=== PATIENT | female | born 1950 | race Caucasian/White ===

== ENCOUNTER → 2016-10-24 | Day surgery (SDC) | payer MEDICARE, BC ==
[~2016-10-24] MED LIST: ACETAZOLAMIDE500 M1 PO; ADVAIR 100-501 EAC1; ADVAIR 2501 DISK W/1 IH; ALBUTEROL17 GM INH; ALDARA12 EA TOP; AMIODARONE PO; ANTIVERT12.5 MG PO; ASPIR-TRIN325 MG PO; ASPIRIN PO; ASPIRIN81 M2 PO; BACLOFEN10 MG PO; CARAFATE; CARAFATE1 GM PO; CIPRO PO; COMBIGAN EYE DRO5 ML; COMBIGAN EYE DRO5 ML OU; DEXILANT60 MG; DEXILANT60 MG PO; DICLOFENAC PO; DILANTIN PO; DORZOLAMIDE HCL10 M2 OU; DOXEPIN PO; DYAZIDE 371 CAP 37.5 PO; EC-NAPROSYN500 MG PO; ESTRACE; ESTRACE PO; FLAGYL PO; HCTZ PO; HYCODAN60 ML 5MG/ PO; HYDROCHLOROTH12.5 M1 PO; IMDUR-ER60 MG; IMDUR-ER60 MG PO; IPRAT-ALBUT 0.5-3 ML INH; LAMISIL250 MG PO; LANSOPRAZOLE30 MG PO; LATANOPROST2.5 ML; LATANOPROST2.5 ML OU; LEVAQUIN PO; LIOTHYRONINE PO; LISINOPRIL PO; LOPRESSOR PO; LOVASTATIN20 M1 PO; MUCINEX DM1 TAB.SR . PO; NASONEX17 GM; NATURAL VITA400 UNI2 PO; NEURONTIN600 MG PO; NEXIUM PO; NITROGLYGERIN0.4 MG SL; NITROQUICK0.4 MG SL; PLAVIX PO; PREDNISONE; PREDNISONE PO; PREMARIN VAG CR45 GM; PRILOSEC20 M1 PO; PROTONIX PO; PYRIDIUM PO; SUPER B COMPLEX1 CAP PO; SYNTHROID PO; SYNTHROID112 MCG PO; TESSALON PERLE100 M1 PO; TESSALON200 MG PO; TRAVATAN5 ML OP; VIMPAT PO; VIMPAT50 MG PO; VITAMIN D34000 UNIT PO; VOLTAREN75 MG; VOLTAREN75 MG PO; XALATAN OP; XENICAL120 MG PO; ZESTORETIC 20/11 TAB PO; ZESTRIL2.5 M1 PO; ZITHROMAX PO; ZOCOR; ZOCOR PO; ZOFRAN PO; ZYRTEC PO
--- NOTE | ~2016-10-24 | OR ---
Unit #: [id number] #: [id number] Patient: DELROY BUSBY [id number] [address] [address] [id number] O MR#: [id number] NAME: DELROY BUSBY ROOM: Date of Procedure: 10/24/2016 Admission Date: 10/24/2016 Surgeon: Moody Monsalve M.D. : 1950 Attending Physician: Josef Monsalve Primary Care Physician: Raghu Vences M.D. [facility]ENTER OPERATIVE NOTE PROCEDURE PERFORMED Lumbar epidural steroid injection under x-ray guided needle placement. PREOPERATIVE DIAGNOSES 1. Acute lumbar radiculitis. 2. Spinal stenosis, lumbosacral spine. 3. Degenerative joint disease, lumbosacral spine. 4. Degenerative disk disease, lumbosacral spine. INDICATIONS FOR PROCEDURE The patient presents today with longstanding history of chronic lumbar radicular pain secondary to her underlying degenerative processes. She is generally fairly well managed medically with ongoing continuous conservative measures; however, she does occasionally experience exacerbations, which breakthrough these ongoing continuous conservative measures and to date have only responded to epidural steroid injections. She is currently experiencing just such an exacerbation and presents today requesting an epidural steroid injection. After discussing risks and benefits of proceeding today with a lumbar approach epidural steroid injection, the patient agreed this would be the appropriate course of action. DESCRIPTION OF PROCEDURE She was then taken to the operating room, where she was prepped and draped in a sterile manner. Standard monitors were applied. She refused all forms of sedation and lumbar epidural space accessed at the L4-5 level using loss of resistance technique and x-ray guidance. Needle placement was confirmed with injection of 2 mL of Omnipaque. Approximately 60% dye flow was inferior and 40% superior. Total x-ray time for this needle placement was 6 seconds. Following successful needle placement confirmation, the patient received an injectate containing 4 mL normal saline and 80 mg of methylprednisolone. She tolerated this procedure well. She was discharged home with followup instructions, which include an offer to return to this clinic as early as 02/13/2017 if we could be of further service to her. Dictated by... Moody Monsalve M.D. JENNIFER/leida TD: 10/25/2016 05:16 Unit #: [id number] #: [id number] Patient: DELROY BUSBY JOB #: [id number] [facility] OPERATIVE NOTE Page 1 of 1 X Josef Monsalve MD PROCEDURE OPERATIVE NOTE
== END | disposition home or self-care (01) ==
LOC: CCSC 11:23
DX: M47.27 Other spondylosis with radiculopathy, lumbosacral region (principal); M51.17 Intervertebral disc disorders with radiculopathy, lumbosacral region; K21.9 Gastro-esophageal reflux disease without esophagitis; J44.9 Chronic obstructive pulmonary disease, unspecified; J45.909 Unspecified asthma, uncomplicated; I25.10 Atherosclerotic heart disease of native coronary artery without angina pectoris; I25.2 Old myocardial infarction; Z90.13 Acquired absence of bilateral breasts and nipples; Z88.5 Allergy status to narcotic agent; Z91.040 Latex allergy status
CPT/HCPCS: J1040; J2250

== ENCOUNTER → 2017-02-06 | Day surgery (SDC) | payer MEDICARE, BC ==
--- NOTE | ~2017-02-06 | OR ---
Unit #: [id number] #: [id number] Patient: DELROY BUSBY [id number] [address] [address] [id number] O MR#: [id number] NAME: DELROY BUSBY ROOM: Date of Procedure: 02/06/2017 Admission Date: 02/06/2017 Surgeon: Moody Monsalve M.D. : 1950 Attending Physician: Josef Monsalve Referring Physician: Josef Monsalve Primary Care Physician: Raghu Vences M.D. SUR[facility] CENTER OPERATIVE NOTE PROCEDURE PERFORMED Lumbar epidural steroid injection under x-ray guided needle placement. PREOPERATIVE DIAGNOSES 1. Acute lumbar radiculitis. 2. Spinal stenosis, lumbosacral spine. 3. Herniated disk, L4-L5. 4. Degenerative joint disease, lumbosacral spine. 5. Degenerative disk disease, lumbosacral spine. INDICATIONS FOR PROCEDURE The patient presents today with longstanding history of chronic lumbar radicular pain secondary to her underlying degenerative processes. She is generally fairly well managed medically with continuous medication and self-directed physical activity. She is on occasion experienced exacerbations, which to date have only responded to epidural steroid injection. Her usual amount of relief with an epidural steroid injection is 60% to 80% to 100% with a duration of 6, 8, 10 weeks or longer. These are the patient's descriptive terms. Following discussion of risks and benefits of proceeding today with an L4-L5 injection which had been most successful in the past, the patient agreed this would be the appropriate course of action. DESCRIPTION OF PROCEDURE She was then taken to the operating room, where she was prepped and draped in a sterile manner. Standard monitors were applied. She refused all forms of sedation and lumbar epidural space accessed at L4-L5 level using loss of resistance technique and x-ray guidance. Needle placement was confirmed with injection of 2 mL of Omnipaque. There was good superior and inferior flow at this L4-L5 needle placement. Following successful needle placement confirmation, the patient received an injectate containing 4 mL normal saline and 80 mg of methylprednisolone. She tolerated this procedure well. She was discharged home with followup instructions, which include an offer to return to this clinic as early as 05/15/2017 if we could be of further service to her. She is instructed if she was asymptomatic at the time of that scheduled appointment to simply not keep that appointment and to follow up with this clinic or her primary and referring provider at such point as we could be of further service to her. Dictated by... Moody Monsalve M.D. Unit #: [id number] #: [id number] Patient: DELROY BUSBY JENNIFER/leida TD: 02/06/2017 15:11 JOB #: [id number] [facility] OPERATIVE NOTE Page 1 of 1 X Josef Monsalve MD X PROCEDURE OPERATIVE NOTE
== END | disposition home or self-care (01) ==
LOC: CCSC 09:00
DX: G89.29 Other chronic pain (principal); M51.17 Intervertebral disc disorders with radiculopathy, lumbosacral region; M51.16 Intervertebral disc disorders with radiculopathy, lumbar region; M47.27 Other spondylosis with radiculopathy, lumbosacral region; M48.07 Spinal stenosis, lumbosacral region; J45.909 Unspecified asthma, uncomplicated; J44.9 Chronic obstructive pulmonary disease, unspecified; I25.10 Atherosclerotic heart disease of native coronary artery without angina pectoris; I25.2 Old myocardial infarction; K21.9 Gastro-esophageal reflux disease without esophagitis; Z85.3 Personal history of malignant neoplasm of breast; Z88.6 Allergy status to analgesic agent; Z91.040 Latex allergy status; Z79.82 Long term (current) use of aspirin; Z79.51 Long term (current) use of inhaled steroids; Z79.899 Other long term (current) drug therapy; Z90.710 Acquired absence of both cervix and uterus; Z98.51 Tubal ligation status; Z90.13 Acquired absence of bilateral breasts and nipples; Z98.890 Other specified postprocedural states
CPT/HCPCS: J1040; J2250